=== PATIENT | male | born 1995 | race Caucasian/White ===

== ENCOUNTER 2017-09-02 09:49 | Emergency (ER) | payer SELFPAY ==
[2017-09-02 10:14] VITALS: BP 122/61; PULSE 57; TEMP 98; BMI 25.7
[2017-09-02] MEDS ORDERED: IBUPROFEN 600 MG TABLET (FP) PO ONE (10:40)
--- NOTE | 2017-09-02 10:41 | PDOC ---
History of Present Illness - General Chief Complaint: Bite Stated Complaint: BITE Time Seen by Provider: 09/02/17 10:35 History Source: Patient Exam Limitations: No Limitations - History of Present Illness Initial Comments: 09/02/17 10:41 22 yr male with insect sting to the left index finger about 1hr ago while at work pt c/o pain to the site no diff breathing Past History - Past Medical History Allergies/Adverse Reactions: Allergies Allergy/AdvReac Type Severity Reaction Status Date / Time No Known Allergies Allergy Verified 09/02/17 10:10 COPD: No - Surgical History Cardiac Surgery: Yes (as a child for heart murmur) - Suicide/Smoking/Psychosocial Hx Smoking History: Current every day smoker Have you smoked in the past 12 months: Yes Number of Cigarettes Smoked Daily: 3 Information on smoking cessation initiated: Yes 'Breaking Loose' booklet given: 09/02/17 Hx Alcohol Use: No Drug/Substance Use Hx: No Substance Use Type: None Review of Systems - Review of Systems Able to Perform ROS?: Yes Is the patient limited Tajik proficient: No Constitutional: No: Symptoms Reported HEENTM: No: Symptoms Reported Respiratory: No: Symptoms reported Cardiac (ROS): No: Symptoms Reported ABD/GI: No: Symptoms Reported : No: Symptoms Reported Musculoskeletal: No: Symptoms Reported Integumentary: Yes: Symptoms Reported *Physical Exam - Vital Signs Last Vital Signs Temp Pulse Resp BP Pulse Ox 98.0 F 57 L 18 122/61 100 09/02/17 10:11 09/02/17 10:11 09/02/17 10:11 09/02/17 10:11 09/02/17 10:11 - Physical Exam General Appearance: Yes: Nourished, Appropriately Dressed HEENT: positive: EOMI, NEERAJ Extremity: positive: Normal Capillary Refill, Normal Inspection, Normal Range of Motion, Other (left index finger with insect sting noted to the pip joint, mild redness, no stinger , FROM ) Integumentary: positive: Normal Color, Dry, Warm Medical Decision Making - Medical Decision Making 09/02/17 10:42 cc: insect sting left index finger no stinger noted superficial erythematous area at the mcp area FROM no swelling ice pack given motrin given pt asking for narcotics for pain , not applicable to this diagnosis. pt given dc inst *DC/Admit/Observation/Transfer Diagnosis at time of Disposition: Insect bite or sting - Discharge Dispostion Disposition: HOME Condition at time of disposition: Good - Referrals Referrals: Judit Charlton [Primary Care Provider] - - Patient Instructions Printed Discharge Instructions: DI for Insect Bites and Stings Additional Instructions: apply ice to the area of pain every 2hrs for 20 minutes take benadryl as needed for any swelling take ibuprofen 600mg every 8hrs for pain - Post Discharge Activity
== END 2017-09-02 10:51 | disposition home or self-care (01) ==
LOC: JERFT 09:49
DX: T63.481A Toxic effect of venom of other arthropod, accidental (unintentional), initial encounter (principal); M89.8X4 Other specified disorders of bone, hand; Y92.69 Other specified industrial and construction area as the place of occurrence of the external cause
CPT/HCPCS: 99281-25

== ENCOUNTER 2017-10-07 23:06 | Emergency (ER) | payer OTHER ==
[2017-10-07 23:29] VITALS: BP 133/61; PULSE 54; TEMP 98.2; BMI 25.1
--- NOTE | 2017-10-07 23:29 | PDOC ---
Rapid Medical Evaluation Chief Complaint: Injury Medical Evaluation: Allergies Allergy/AdvReac Type Severity Reaction Status Date / Time No Known Allergies Allergy Verified 09/02/17 10:10 10/07/17 23:28 I have performed a brief in-person evaluation of this patient. The patient presents with a chief complaint of: injury to R hand s/p slamming door on hand, tdap 3 years ago Pertinent physical exam findings: abrasion/lac to dorsal aspect of R fingers I have ordered the following: x-ray The patient will proceed to the ED for further evaluation. Discharge Disposition - Diagnosis Hand injury - Referrals - Patient Instructions - Post Discharge Activity
[2017-10-08] MEDS ORDERED: SULFAMETHOXAZOLE/TRIMETHOPRIM 800MG/160MG D.S. TABLET PO ONE (00:17)
[2017-10-08] MEDS ORDERED: SULFAMETHOXAZOLE/TRIMETHOPRIM 800MG/160MG D.S. TABLET ONE (00:20)
--- NOTE | 2017-10-08 01:00 | PDOC ---
History of Present Illness - General Chief Complaint: Injury Stated Complaint: HAND INJURY Time Seen by Provider: 10/08/17 00:09 - History of Present Illness Initial Comments: 10/08/17 00:59 CHIEF COMPLAINT: hand injury HISTORY OF PRESENT ILLNESS: 22 yo M with no PMH presents to ED s/p injury to R hand. Patient reports that he accidentally slammed a "metal door" onto his hand. Patient reports last tetanus shot was within the last 3 years. PAST MEDICAL HISTORY: Denies past medical history FAMILY HISTORY: Denies SOCIAL HISTORY: Denies tobacco, alcohol, illicit drug use. SURGICAL HISTORY: Denies ALLERGIES: No known drug allergies REVIEW OF SYSTEMS General/Constitutional: Denies fever or chills. Denies weakness, weight change. HEENT: Denies change in vision. Denies ear pain or discharge. Denies sore throat. Cardiovascular: Denies chest pain or shortness of breath. Respiratory: Denies cough, wheezing, or hemoptysis. Gastrointestinal: Denies nausea, vomiting, diarrhea or constipation. Denies rectal bleeding. Genitourinary: Denies dysuria, frequency, or change in urination. Musculoskeletal: Pain and swelling to R hand s/p injury . Skin: lacerations to R hand PHYSICAL EXAM General Appearance: Well-appearing, appropriately dressed. No apparent distress , no intoxication. HEENT: EOMI, PERRLA, normal ENT inspection, normal voice, TMs normal, pharynx normal. No conjunctival pallor. No photophobia, scleral icterus. Neck: Supple. Trachea midline. No tenderness, rigidity, carotid bruit, stridor , lymphadenopathy, or thyromegaly. Respiratory/Chest: Lungs CTAB. No shortness of breath, chest tenderness, respiratory distress, accessory muscle use. No crackles, rales, rhonchi, stridor , wheezing, dullness Cardiovascular: RRR. S1, S2. No JVD, murmur, bradycardia, tachycardia. Vascular Pulses: Dorsalis-Pedis (R): 2+, Dorsalis-Pedis (L): 2+ Gastrointestinal/Abdominal: Normal bowel sounds. Abdomen soft, non-distended. No tenderness or rebound tenderness. No organomegaly, pulsatile mass, guarding , hernia, hepatomegaly, splenomegaly. Lymphatic: No adenopathy, tenderness. Musculoskeletal/Extremities: Full ROM to R hand, mild swelling, no deformity, neurovascularly intact. Normal inspection. FROM of all extremities, normal capillary refill. Pelvis Stable. No CVA tenderness. No tenderness to extremities, pedal edema, swelling, erythema or deformity. Integumentary: Minor lacerations to dorsal aspect of proximal fingers just distal to MCP joint. No active bleeding. Appropriate color, dry, warm. No cyanosis, erythema, jaundice or rash Neurologic: model builder display II-XII intact. Fully oriented, alert. Appropriate mood/affect. Motor strength 5/5. No appreciable EOM palsy, facial droop or sensory deficit. Past History - Past Medical History Allergies/Adverse Reactions: Allergies Allergy/AdvReac Type Severity Reaction Status Date / Time No Known Allergies Allergy Verified 10/07/17 23:29 Home Medications: Ambulatory Orders Diclofenac Sodium 50 mg PO BID PRN #14 tablet. 10/08/17 Sulfamethoxazole/Trimethoprim [Bactrim Ds Tablet] 1 each PO BID #14 tablet 10/08 COPD: No - Surgical History Cardiac Surgery: Yes (as a child for heart murmur) - Suicide/Smoking/Psychosocial Hx Smoking History: Current every day smoker Have you smoked in the past 12 months: Yes Number of Cigarettes Smoked Daily: 3 Information on smoking cessation initiated: No 'Breaking Loose' booklet given: 09/02/17 Hx Alcohol Use: No Drug/Substance Use Hx: No Substance Use Type: None *Physical Exam - Vital Signs Last Vital Signs Temp Pulse Resp BP Pulse Ox 98.2 F 54 L 17 133/61 100 10/07/17 23:26 10/07/17 23:26 10/07/17 23:26 10/07/17 23:26 10/07/17 23:26 Procedures - Consent Consent obtained: Verbal - Laceration/Wound Repair Right Dorsal Hand Wound Length: to 2.5 cm Wound Explored: clean, no foreign body present Wound's Depth, Shape: flap Irrigated w/ Saline: Yes Betadine Prep: Yes Wound Repaired With: Dermabond ED Treatment Course - RADIOLOGY Radiology Studies Ordered: Category Date Time Status HAND- RIGHT [RAD] Stat Radiology 10/07/17 23:29 Taken - Medications Given in the ED: ED Medications Discontinued Medications Generic Name Dose Route Start Last Admin Trade Name Freq PRN Reason Stop Dose Admin Trimethoprim/Sulfamethoxazole 1 each 10/08/17 00:17 10/08/17 00:20 Bactrim Ds - PO 10/08/17 00:18 1 each ONCE ONE Administration Medical Decision Making - Medical Decision Making 10/08/17 01:15 22 yo M with no PMH presents to ED s/p injury to R hand. -x-ray of R hand x-ray wet read negative for fracture. -lac repair with Dermabond -given location of lacerations, will give prophylactic abx *DC/Admit/Observation/Transfer Diagnosis at time of Disposition: Hand injury - Discharge Dispostion Disposition: HOME Condition at time of disposition: Stable Decision to Admit order: No - Prescriptions Prescriptions: Diclofenac Sodium 50 mg PO BID PRN #14 tablet. PRN Reason: Pain Sulfamethoxazole/Trimethoprim [Bactrim Ds Tablet] 1 each PO BID #14 tablet - Referrals Referrals: Robert Roland MD [Staff Physician] - - Patient Instructions Printed Discharge Instructions: DI for Hand Injury, DI for Laceration Repair With Dermabond Additional Instructions: Please take all medications as prescribed and finish the entire course of antibiotics. If you develop any redness, warmth, streaking, or increased swelling to the site of injury, or you develop fever, chills, nausea, vomiting, diarrhea, or any new or worsening symptoms, please return to the ER. - Post Discharge Activity
--- NOTE | 2017-10-08 01:14 | PDOC ---
*Physical Exam - Vital Signs Last Vital Signs Temp Pulse Resp BP Pulse Ox 98.2 F 54 L 17 133/61 100 10/07/17 23:26 10/07/17 23:26 10/07/17 23:26 10/07/17 23:26 10/07/17 23:26 ED Treatment Course - Medications Given in the ED: ED Medications Discontinued Medications Generic Name Dose Route Start Last Admin Trade Name Freq PRN Reason Stop Dose Admin Trimethoprim/Sulfamethoxazole 1 each 10/08/17 00:17 10/08/17 00:20 Bactrim Ds - PO 10/08/17 00:18 1 each ONCE ONE Administration Medical Decision Making - Medical Decision Making 10/08/17 01:14 agree with care from DANDRE Bloom *DC/Admit/Observation/Transfer Diagnosis at time of Disposition: Hand injury - Discharge Dispostion Disposition: HOME Condition at time of disposition: Stable - Prescriptions Prescriptions: Diclofenac Sodium 50 mg PO BID PRN #14 tablet. PRN Reason: Pain Sulfamethoxazole/Trimethoprim [Bactrim Ds Tablet] 1 each PO BID #14 tablet - Referrals Referrals: Robert Roland MD [Staff Physician] - - Patient Instructions Printed Discharge Instructions: DI for Hand Injury Additional Instructions: Please take all medications as prescribed and finish the entire course of antibiotics. If you develop any redness, warmth, streaking, or increased swelling to the site of injury, or you develop fever, chills, nausea, vomiting, diarrhea, or any new or worsening symptoms, please return to the ER. - Post Discharge Activity
== END 2017-10-08 01:15 | disposition home or self-care (01) ==
LOC: JER 23:06
PROC: 0HQFXZZ Repair Right Hand Skin, External Approach (ICD-10-PCS; principal; 2017-10-07)
DX: S61.411A Laceration without foreign body of right hand, initial encounter (principal); L08.9 Local infection of the skin and subcutaneous tissue, unspecified; W23.0XXA Caught, crushed, jammed, or pinched between moving objects, initial encounter; Y93.89 Activity, other specified; Y92.89 Other specified places as the place of occurrence of the external cause; Y99.8 Other external cause status
CPT/HCPCS: 73130-TC-RT-FY; 99282-25

== ENCOUNTER 2018-04-14 09:19 | Emergency (ER) | payer OTHER ==
[2018-04-14 09:44] VITALS: BP 100/70; PULSE 77; TEMP 98; BMI 27.1
[2018-04-14] MEDS ORDERED: IBUPROFEN 400 MG TABLET (FP) PO ONE ×2 (11:00→11:03)
--- NOTE | 2018-04-14 11:00 | PDOC ---
History of Present Illness - General Chief Complaint: Cold Symptoms Stated Complaint: HEADACHE Time Seen by Provider: 04/14/18 10:10 History Source: Patient Exam Limitations: No Limitations - History of Present Illness Initial Comments: 04/14/18 19:33 Patient is a 23-year-old male medical history who presents to the ER for headache for one week. Patient states he tried taking Tylenol home with some relief of his symptoms. He states that the pain comes back. Patient states that he feels like he is wearing had been the gets tight around his head. Also complains of runny nose and sore throat. Denies fever, chills, lightheadedness, dizziness, loss of consciousness, trauma, neck pain. Past History - Travel Traveled outside of the country in the last 30 days: No Close contact w/someone who was outside of country & ill: No - Past Medical History Allergies/Adverse Reactions: Allergies Allergy/AdvReac Type Severity Reaction Status Date / Time No Known Allergies Allergy Verified 04/14/18 09:42 Home Medications: Ambulatory Orders Ibuprofen 800 mg PO TID #30 tablet 04/14/18 COPD: No - Surgical History Cardiac Surgery: Yes (as a child for heart murmur) - Suicide/Smoking/Psychosocial Hx Smoking History: Current every day smoker Have you smoked in the past 12 months: Yes Number of Cigarettes Smoked Daily: 3 Information on smoking cessation initiated: No 'Breaking Loose' booklet given: 09/02/17 Hx Alcohol Use: No Drug/Substance Use Hx: No Substance Use Type: None Review of Systems - Review of Systems Able to Perform ROS?: Yes Comments:: 04/14/18 10:59 CONSTITUTIONAL: Absent: fever, chills, diaphoresis, generalized weakness, malaise, loss of appetite HEENT: Absent: rhinorrhea, nasal congestion, throat pain, throat swelling, difficulty swallowing, mouth swelling, ear pain, eye pain, visual Changes CARDIOVASCULAR: Absent: chest pain, loss of consciousness, palpitations, irregular heart rate, peripheral edema RESPIRATORY: Absent: cough, shortness of breath, dyspnea with exertion, orthopnea, wheezing, stridor, hemoptysis GASTROINTESTINAL: Absent: abdominal pain, abdominal distension, nausea, vomiting, diarrhea, constipation, melena, hematochezia GENITOURINARY: Absent: dysuria, frequency, urgency, hesitancy, hematuria, flank pain, genital pain MUSCULOSKELETAL: Absent: myalgia, arthralgia, joint swelling SKIN: Absent: rash, itching, pallor HEMATOLOGIC/IMMUNOLOGIC: Absent: easy bleeding, easy bruising, lymphadenopathy, frequent infections ENDOCRINE: Absent: unexplained weight gain, unexplained weight loss, heat intolerance, cold intolerance NEUROLOGIC: Present: headache Absent: focal weakness or paresthesias, dizziness, unsteady gait, seizure, mental status changes, bladder or bowel incontinence PSYCHIATRIC: Absent: anxiety, depression, suicidal or homicidal ideation, hallucinations. Is the patient limited Cypriot proficient: No *Physical Exam - Vital Signs Last Vital Signs Temp Pulse Resp BP Pulse Ox 98 F 77 16 100/70 98 04/14/18 09:43 04/14/18 09:43 04/14/18 09:43 04/14/18 09:43 04/14/18 09:43 - Physical Exam Comments: 04/14/18 10:59 GENERAL: Well developed, well nourished. Awake and alert. No acute distress. HEENT: Normocephalic, atraumatic. PERRLA, EOMI. No conjunctival pallor. Sclera are non- icteric. Moist mucous membranes. Oropharynx is clear. NECK: Supple. Full ROM. No JVD. Carotid pulses 2+ and symmetric, without bruits. No thyromegaly. No lymphadenopathy. CARDIOVASCULAR: Regular rate and rhythm. No murmurs, rubs, or gallops. Distal pulses are 2+ and symmetric. PULMONARY: No evidence of respiratory distress. Lungs clear to auscultation bilaterally. No wheezing, rales or rhonchi. ABDOMINAL: Soft. Non-tender. Non-distended. No rebound or guarding. No organomegaly. Normoactive bowel sounds. MUSCULOSKELETAL Normal range of motion at all joints. No bony deformities or tenderness. No CVA tenderness. EXTREMITIES: No cyanosis. No clubbing. No edema. No calf tenderness. SKIN: Warm and dry. Normal capillary refill. No rashes. No jaundice. NEUROLOGICAL: Alert, awake, appropriate. Cranial nerves 2-12 intact. No deficits to light touch and temperature in face, upper extremities and lower extremities. No motor deficits in the in face, upper extremities and lower extremities. Normoreflexic in the upper and lower extremities. Normal speech. Toes are down- going bilaterally. Gait is normal without ataxia. PSYCHIATRIC: Cooperative. Good eye contact. Appropriate mood and affect. Moderate Sedation - Procedure Monitoring Vital Signs: Procedure Monitoring Vital Signs Temperature 98 F 04/14/18 09:43 Pulse Rate 77 04/14/18 09:43 Respiratory Rate 16 04/14/18 09:43 Blood Pressure 100/70 04/14/18 09:43 O2 Sat by Pulse Oximetry (%) 98 04/14/18 09:43 Medical Decision Making - Medical Decision Making 04/14/18 19:34 Patient is a 23-year-old male with no past medical history who presents with 1 week of gradual intermittent headaches. On exam patient with normal neurologic findings, no gross abnormalities. Throat appears normal. Lungs are clear bilaterally. Patient smells of marijuana. Suspect the patient has tension headaches at this time no red flags on history or physical. We'll defer head CT. Motrin given with relief of symptoms. Discharge home I discussed the physical exam findings, ancillary test results and final diagnoses with the patient. I answered all of the patient's questions. The patient was satisfied with the care received and felt comfortable with the discharge plan and treatment plan. The Patient agrees to follow up with the primary care physician/specialist within 24-72 hours. Return precautions were given. *DC/Admit/Observation/Transfer Diagnosis at time of Disposition: Common cold Headache Qualifiers: Headache type: unspecified Headache chronicity pattern: acute headache Intractability: not intractable Qualified Code(s): R51 - Headache - Discharge Dispostion Disposition: HOME Condition at time of disposition: Stable Decision to Admit order: No - Prescriptions Prescriptions: Ibuprofen 800 mg PO TID #30 tablet - Referrals Referrals: Judit Charlton [Primary Care Provider] - - Patient Instructions Printed Discharge Instructions: DI for Common Cold, DI for Headache Additional Instructions: You have a headache. Please take Motrin 800 mg every 8 hours as needed for headache. Please drink plenty of fluids and get plenty of rest. The Motrin should also help her sore throat. Follow up with her primary care doctor this week. Final return to the ER if you have any worsening symptoms, fever, dizziness, loss of consciousness or feel any changes in your symptoms. - Post Discharge Activity Forms/Work/School Notes: Back to Work
== END 2018-04-14 11:19 | disposition home or self-care (01) ==
LOC: JER 09:19 → JERFT 09:19
DX: J00 Acute nasopharyngitis [common cold] (principal); R51 Headache
CPT/HCPCS: 99281-25